=== PATIENT | female | born 1980 | race Caucasian/White ===

== ENCOUNTER 2018-05-01 14:56 | Emergency (ER) | payer OTHER ==
[~2018-05-01] VITALS: Ht 154.9 cm; Wt 56.7 kg
[~2018-05-01 14:56] MED LIST: AMOCLA875 PO; Augmentin 875-1 EACH PO; Bactrim Ds Tab1 EACH PO; CEPH500 PO; Cleocin HCl300 MG PO; HYDACE5 PO; IBUP600 PO; IBUP800 PO; LEVO750 PO; Norco 10-325 T1 EACH PO; OXYACE5T PO; PENVK500 PO; Pyridium200 MG PO; SULTRIDS PO
[2018-05-01 15:50] LABS: Source, Urine Clean Catch
[2018-05-01 16:24] LABS: Blood, Urine 5+ (Neg); Glucose Qualitative, Urine Neg (Neg); Ketones, Urine 2+ (Neg); Leukocyte Esterase, Urine 2+ (Neg); Nitrite, Urine Pos (Neg); Protein, Urine 2+ (Neg); Urobilinogen, Urine 2+ (Normal)
[2018-05-01 16:41] LABS: Appearance, Urine Bloody (Clear); Color, Urine Red (P-Yellow)
[2018-05-01 16:42] LABS: Bilirubin, Urine 1+ (Neg)
[2018-05-01 16:44] LABS: Red Blood Cells, Urine TNTC /hpf (0-2)
[2018-05-01 16:45] LABS: Bacteria Many /hpf; Calcium Oxalate Crystals Rare /hpf; Squamous Epithelial Cells Rare /hpf (Few)
[2018-05-01] MEDS ORDERED: CEPH500 PO (16:51)
== END 2018-05-01 17:22 | disposition home or self-care (01) ==
LOC: ER 14:56
PROVIDERS: Emergency Medicine
DX: N39.0 Urinary tract infection, site not specified (principal); R31.9 Hematuria, unspecified; F41.9 Anxiety disorder, unspecified; F32.9 Major depressive disorder, single episode, unspecified; F17.210 Nicotine dependence, cigarettes, uncomplicated
CPT/HCPCS: 81001; 87086; 99283

== ENCOUNTER 2019-04-13 14:27 | Emergency (ER) | payer OTHER ==
[~2019-04-13] VITALS: Ht 154.9 cm; Wt 56.7 kg
[2019-04-13] MEDS ORDERED: IBU800 MG PO (16:27)
[2019-04-13] MEDS ORDERED: Augmentin 875-1 EACH PO (16:27)
[2019-04-13] MEDS ORDERED: PSEU120ER PO (16:27)
== END 2019-04-13 17:00 | disposition home or self-care (01) ==
LOC: ER 14:27
DX: J01.90 Acute sinusitis, unspecified (principal); F17.200 Nicotine dependence, unspecified, uncomplicated
CPT/HCPCS: 99283

== ENCOUNTER 2019-04-15 00:02 | Emergency (ER) | payer OTHER ==
[~2019-04-15] VITALS: Ht 154.9 cm; Wt 59.0 kg
[~2019-04-15 00:02] MED LIST changes: +IBU800 MG PO; +PSEU120ER PO
== END 2019-04-15 03:40 | disposition home or self-care (01) ==
LOC: ER 00:02
DX: J32.9 Chronic sinusitis, unspecified (principal); F17.200 Nicotine dependence, unspecified, uncomplicated
CPT/HCPCS: 96372; 99283-25; J1885

== ENCOUNTER 2021-12-27 08:10 | Emergency (ER) | payer OTHER ==
[~2021-12-27] VITALS: Ht 154.9 cm; Wt 56.7 kg
[2021-12-27] MEDS ORDERED: Robaxin750 MG PO (10:24)
== END 2021-12-27 10:47 | disposition home or self-care (01) ==
LOC: ER 08:10
DX: M62.830 Muscle spasm of back (principal); S29.012A Strain of muscle and tendon of back wall of thorax, initial encounter; X58.XXXA Exposure to other specified factors, initial encounter; Z79.899 Other long term (current) drug therapy
CPT/HCPCS: 93005; 93010; 96372; 99283-25; A9270; J1885

== ENCOUNTER 2021-12-28 22:31 | Emergency (ER) | payer OTHER ==
[~2021-12-28] VITALS: Ht 154.9 cm; Wt 56.7 kg
[~2021-12-28 22:31] MED LIST changes: +Robaxin750 MG PO
== END 2021-12-28 23:46 | disposition home or self-care (01) ==
LOC: ER 22:31
DX: M62.838 Other muscle spasm (principal); F17.200 Nicotine dependence, unspecified, uncomplicated
CPT/HCPCS: 96372; 99283-25; J1885